=== PATIENT | male | born 1955 | race Caucasian/White ===

== ENCOUNTER 2018-01-30 05:56 | Day surgery (SDC) | payer BC ==
--- NOTE | 2018-01-21 15:05 | HP ---
AMENDED REPORT NOW INCLUDES COSIGNER DESIGNATION - ESIGNED BEFORE ADJUSTMENTS CC: Dr. Edilma Baeza * ADMISSION HISTORY AND PHYSICAL: DATE OF ADMISSION: 01/30/18 ATTENDING SURGEON: Dr. Rohan Gregorio.* (DICTATED BY PERFECTO BRIONES) CHIEF COMPLAINT: Right inguinal hernia. HISTORY OF PRESENT ILLNESS: This is a 62-year-old hypertensive male who about a month ago was lifting multiple 50-pound feed bags and thereafter experienced some pain in the right testicle. This is described as an achy, steady pain that was somewhat worse with activity or bending, though has dissipated largely. The patient denies noticing a bulge, though his states that she can see some asymmetry. He has not had any significant GI or symptoms, though he does have some background symptoms consistent with BPH. He certainly not had anything to suggest incarceration or strangulation. He was seen by his primary care physician, Dr. Baeza and then referred for evaluation. He was seen by Dr. Gregorio in the office on 01/07/18 at which time exam confirmed the presence of some mild tenderness in the right testicle with a right inguinal hernia appreciated with positive Valsalva. No hernia was noted on the left. Impression was that of symptomatic right inguinal hernia and recommendation was made for repair. The patient understands the indications for surgery, the methods thereof, and the risks, benefits and alternatives. He would like to proceed as scheduled with laparoscopic repair of right inguinal hernia with mesh. PAST MEDICAL HISTORY: Hypertension, environmental allergic rhinitis, BPH (per Dr. Baeza's chart notes, though the patient states he is not aware of any enlargement of the prostate gland), history of a gastric ulcer secondary to aspirin therapy. PAST SURGICAL HISTORY: The patient is unsure if he has ever had general anesthesia, though his history suggests he has with a left eye surgery as a child and tonsillectomy. CURRENT MEDICATIONS: 1. Amlodipine 5 mg once daily. 2. Montelukast 10 mg once daily. 3. Multivitamin once daily. 4. Vitamin D3, 2000 IU once daily. 5. Pumpkin oil (prostate health supplement; he was instructed to hold for three days preoperatively). DRUG ALLERGIES: PENICILLIN (the patient does not know what reaction he had). FAMILY HISTORY: Significant for early onset heart disease in his father who actually is still alive at age 87. There is no known family history of anesthesia problems, bleeding, or clotting disorder. SOCIAL HISTORY: The patient is and his accompanies him today. 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 He denies use of tobacco. He drinks alcohol on occasion, but less than one drink per week. REVIEW OF SYSTEMS: General: No recent constitutional symptoms or acute illnesses. Eyes: No recent changes. No history of cataracts or glaucoma. He does have some degree of strabismus. Ears, Nose, Throat: No problems reported. Cardiovascular: No chest pain or palpitations. He is treated for hypertension. No history of murmur. Respiratory: No history of asthma or chronic cough. He is treated for environmental allergic rhinitis. GI: No additions to the past medical history other than colonoscopy per chart record that was done in 2010, which he states was normal study. An EGD was also performed at that time, which showed the gastric ulcer secondary to aspirin therapy, which was treated. : He has nocturia typically x2. He has not had a digital rectal exam in the past couple of years and I suggested that he discuss that further with Dr. Baeza. No recent changes. Endocrine: No diabetes or thyroid dysfunction. The remainder of the review systems are negative except as noted above. PHYSICAL EXAMINATION GENERAL: Well-nourished, well-developed male, in no acute distress. VITAL SIGNS: Height 71 inches, weight 175 pounds. Temperature 98, blood pressure 118/80, pulse 80, respirations 16. HEENT: Pupils equal, round, and reactive. EOMs intact. He does have some strabismus. Conjunctivae pink. Oropharynx: Teeth in good repair. No active oral lesions. NECK: No lymphadenopathy in the cervical or supraclavicular regions. No thyromegaly or masses. LUNGS: Clear to auscultation. No rales or wheezes. HEART: Regular rate and rhythm. No murmur noted. ABDOMEN: Soft, nontender to palpation. No palpable masses or organomegaly. Hernia exam as per Dr. Gregorio, as noted in the HPI, not repeated today. GENITALIA: Not repeated today RECTAL: Not done. NEUROLOGIC: Grossly intact. SKIN: Warm and dry. No suspicious rashes or lesions BACK: No spinous process or CVA tenderness. EXTREMITIES: No edema. Neurological grossly intact. IMPRESSION: Right inguinal hernia. PLAN: Laparoscopic repair of right inguinal hernia with mesh. PERFECTO MAX [id number] #: [id number] MTDD
[~2018-01-30 05:56] MED LIST: Buffered Lidocaine 0.9% SYRIN* 5 ML/SYR SYRINGE INTRADERM ONE
[2018-01-30] MEDS ORDERED: Sodium Citrate/Citric Acid* 15 ML UDC PO ONE (06:00)
[2018-01-30] MEDS ORDERED: Sodium Citrate/Citric Acid* 15 ML UDC ONE (06:06)
[2018-01-30] MEDS ORDERED: Buffered Lidocaine 0.9% SYRIN* 5 ML/SYR SYRINGE ONE (06:07)
[2018-01-30] MEDS ORDERED: Clindamycin 900 MG IVPREMIX(* 900 MG/50 ML SDV IV ONE (06:07)
[2018-01-30] MEDS ORDERED: Bupivacaine 0.25% SDV* 30 ML ONE ×2 (06:56→07:08)
[2018-01-30] MEDS ORDERED: Propofol* 10 MG/ML 20 ML BTL IV PUSH ONE (07:26)
[2018-01-30] MEDS ORDERED: Lidocaine 2% PF * 5 ML VIAL ONE (07:26)
[2018-01-30] MEDS ORDERED: Rocuronium* 10 MG/ML VIAL ONE (07:26)
[2018-01-30] MEDS ORDERED: fentaNYL* 50 MCG/ML 2 ML VIAL (100 MCG VIAL) ONE ×2 (07:36→09:52)
[2018-01-30] MEDS ORDERED: Naloxone* 0.4 MG/ML 1 ML VIAL IV PRN (08:14)
[2018-01-30] MEDS ORDERED: Ondansetron INJ* 2 MG/ML VIAL IV PRN (08:14)
[2018-01-30] MEDS ORDERED: Glycopyrrolate IV* 0.2 MG/ML 1 ML VIAL ONE (08:50)
[2018-01-30] MEDS ORDERED: Neostigmine Methylsulfate* 1 MG/ML 10 ML VIAL (1 mg/ml) ONE (08:50)
[2018-01-30] MEDS ORDERED: Ketorolac INJ* 30 MG/ML 1 ML VIAL ONE (08:52)
[2018-01-30] MEDS: fentaNYL* 50 MCG/ML 2 ML VIAL (100 MCG VIAL) IV PRN ×2 (09:55→10:50)
[2018-01-30 10:37] VITALS: BP 130/87
--- NOTE | 2018-01-31 11:54 | OP ---
CC: Dr. Edilma Baeza * DATE OF OPERATION: 01/30/18 - [facility] [place] DATE OF : 55 SURGEON: Rohan Gregorio MD. CASKET UPHOLSTERER: Anjelica Chinchilla NP. PRE-OP DIAGNOSIS: Right inguinal hernia. POST-OP DIAGNOSIS: Right inguinal hernia. OPERATIVE PROCEDURE: Laparoscopic right inguinal hernia repair with mesh. ESTIMATED BLOOD LOSS: Minimal. FLUIDS: Minimal crystalloid fluid given. SPECIMENS: None. DESCRIPTION OF PROCEDURE: The patient was identified in the preoperative area. Consent was signed. The patient was marked. She was brought to the operating room and placed on the operating table in a supine position. Preoperative antibiotics were given. Sequential devices were placed on bilateral lower extremities and general anesthesia was induced. The patient's abdomen was clipped of hair, prepped and draped in a standard surgical fashion. A time-out was performed. An infraumbilical incision was made. This was deepened down to the rectus pillar on the left which was incised and we entered into the preperitoneal plane and did blunt dissection into this plane. Next we placed a 12 mm trocar through this area and allowed this to insufflate to a pressure of 12 mmHg. Laparoscope was inserted into this and it was clear that we were inside the abdomen. The trocar was removed and I reviewed the peritoneum. This was brought up into our incision and reapproximated with a 2-0 Vicryl suture. There was a small opening and we were able to close it. We went back and placed a 12 mm trocar into the preperitoneal plane which was then appropriately insufflated to a pressure of 12 mmHg. Next two 5 mm trocars were inserted in the lower midline in the preperitoneal plane. Filippo's ligament was cleared up on both the left side and right side. Attention was turned towards the right. The epigastric vessels were maintained anteriorly and blunt dissection was carried to the space of [place]. We did have to push the inflated peritoneum posteriorly to do this. We freely saw the space. The direct space showed no hernia; in the indirect space, we saw the peritoneum extending into the inguinal canal. This was bluntly dissected free and placed posteriorly. A lipoma of the cord was then dissected and placed posteriorly as well. The cord structures were skeletonized and next a right-sided 3D mesh was placed in the preperitoneal plane, allowed to unfurl, and tacked to Filippo's ligament and also laterally. The mesh lay over the myopectineal orifice covering the defects and we then allowed the preperitoneal plane to collapse. Hemostasis was excellent. Trocars were removed under direct vision. Next we went back to the suture that we placed at the peritoneum. We pulled it this site, opened it up and allowed the air to escape and then closed the anterior fascia at the umbilical port site with 0 Polysorb suture in a figure-of -eight fashion. All three skin incisions were reapproximated with 4-0 Monocryl subcuticular sutures followed by Steri-Strips and sterile dressing. The patient tolerated the procedure well, was woken up in the OR, and transferred to the PACU in stable condition. [id number]/CPS #: [id number] MTDNavneet
== END 2018-01-30 11:18 | disposition home or self-care (01) ==
LOC: OR 05:56
PROVIDERS: ATTEND Surgery
DX: K40.90 Unilateral inguinal hernia, without obstruction or gangrene, not specified as recurrent (principal); I10 Essential (primary) hypertension; N40.0 Benign prostatic hyperplasia without lower urinary tract symptoms; K21.9 Gastro-esophageal reflux disease without esophagitis; G43.909 Migraine, unspecified, not intractable, without status migrainosus
CPT/HCPCS: A9270-GY; C1776; C1781; J1885; J2704; J2710; J3010